=== PATIENT | male | born 1965 | race Caucasian/White ===

== ENCOUNTER 2017-02-26 15:51 | Emergency (ER) | payer BC ==
[~2017-02-26] VITALS: Ht 175.3 cm; Wt 75.2 kg
[~2017-02-26 15:51] MED LIST: NO REGULAR MEDS
[2017-02-26 15:53] VITALS: TEMP 98.5; Ht 175.3 cm; Wt 75.2 kg
--- NOTE | 2017-02-26 16:00 | ERPDOC ---
Departure Disposition Decision Date: February 26, 2017 Disposition Decision Time: 16:35 Disposition: 01 DISCHARGED HOME, SELF-CARE Impression Impression Impression: Primary Impression: Left radial fracture Encounter type: initial encounter Radius location: distal Fracture type: closed Fracture morphology: other intra-articular Qualified Codes: S52.572A - Other intraarticular fracture of lower end of left radius, initial encounter for closed fracture Additional Impression: Fall Encounter type: initial encounter Qualified Codes: W19.XXXA - Unspecified fall, initial encounter Severity: Moderate Condition: Improved Seen By: Mid-level only Referrals: MEAGHAN COLUNGA MD (Family) ERIC CALVERT MD Patient Instructions: Wrist Fracture in Adults (ED) Problems/Meds/Labs Reviewed?: Yes Medications reviewed and manag: Yes Additional Instructions: Your have fracture of your left radius. Wear splint as directed. Elevated arm and ice to reduce swelling. Follow in office tomorrow with Dr. Calvert orthopedic physician at 1:30. You may take narco 5/325mg, 1-2 tabs every 4-6 hours for pain. This medication may cause drowsiness so avoid operating heavy, machinery driving or drinking alcohol while taking. You may take OTC aleve or ibuprofen for pain. Ask Dr. Calvert tomorrow to see if he wants you to continue this. Follow treatment plan. Follow up care ordered?: Yes Mental Status: Alert, Oriented Scripts Hydrocodone/Acetaminophen ([place] 5-325 Tablet) 5-325 Tablet 1-2 TAB PO Q4-6HPRN Y for PAIN, #20 TAB Prov: SAL WRIGHT Geraldo ANTOINE 02/26/17 HPI - Fall/Injury General Chief Complaint: Fall Stated Complaint: FELL,POSS BROKEN ARM Time Seen by Provider: 15:58 Source: patient HPI - Fall/Injury Initial Comments 51 YO M presents to ED with report of left wrist and left shoulder pain. Patient was on a ladder cleaning out gutters when he slipped and fell approx. 4 ft. on out stretched left hand onto concrete at 1500 today. Having pain over radius on wrist and pain with movement. Also report pain in left shoulder joint. Denies striking head, LOC, neck/back pain or other injuries. Patient has not taken anything for pain. Occurred At: home Pain Scale: Now: 6/10 Injuries/Pain Location: upper extremity Loss of Consciousness: no loss of consciousness Associated Symptoms: DENIES: abdominal pain, chest pain, confusion, dizziness, headache, lightheadedness, muscle spasms, nausea/vomiting, neck pain, ringing in ears, seizures, shortness of breath, slurred speech, trouble walking, vision changes Allergies: Coded Allergies: No Known Drug Allergies (Unverified Allergy, Unknown, 11/13/08) Past History Past Medical History Metabolic: DENIES: diabetes Cardiac: angina Respiratory: DENIES: asthma GI: DENIES: ulcers Male: DENIES: renal insufficiency Neurological: DENIES: seizures Musculoskeletal: DENIES: rheumatoid arthritis Hematologic: DENIES: anemia Psychological: DENIES: depression Surgical History General: appendix Joint: shoulder Family History Family PMH: FOUND: other (noncontributory) Social History Current Occupational Status: employed Review of Systems Constitutional Constitutional: DENIES: chills, dizziness, fever, weakness Eyes General: DENIES: erythema, exudate Lids/Accessories: DENIES: erythema, swelling ENMT Ears: DENIES: pain Sinuses: DENIES: congestion, rhinorrhea Mouth/Throat: DENIES: sore throat Cardiovascular Cardiac: DENIES: chest pain, murmur Rhythm/Rate: DENIES: palpitations Pulmonary Respiratory: DENIES: cough, dyspnea GI Upper Abdomen: DENIES: nausea, pain, vomiting Lower Abdomen: DENIES: diarrhea, pain General: DENIES: dysuria, pain Musculoskeletal General: joint pain, see HPI, tenderness Integumentary Skin: DENIES: color change, itching, rash Neurological General: DENIES: ataxia, change in strength, numbness, paralysis/paresis, weakness Psychiatric Psychiatric: DENIES: anxiety, depression, nervousness Physical Exam General General Nourishment: well nourished, well developed, no acute distress, adult General Body Habitus: well groomed Vitals and Pain First Documented Vital Signs Date Time Temp Pulse Resp B/P Pulse Ox O2 Delivery O2 Flow Rate FiO2 02/26/17 15:53 98.5 82 16 144/73 95 Room Air Weight: Kilograms: Height (feet): Height (inches): Triage Pain Scale: Eyes (brief) Eyes Brief: found: EOMI ENMT (brief) ENMT Brief: NOT FOUND: nasal exudate, nasal swelling Neck (brief) Neck: FOUND: trachea midline Respiratory (brief) Respiratory: FOUND: clear all otero, equal bilaterally, symmetrical Cardiovascular (brief) Cardiac: FOUND: regular rate, regular rhythm Fastrak Hand/Forearm Hand/Forearm : Upper Extremity: Left Elbow: extension intact, flexion intact, NOT FOUND: deformity, ecchymosis, erythema, laceration, swelling, tender Forearm: pronation intact, supination intact, NOT FOUND: deformity, ecchymosis, erythema, swelling, tender Wrist: ROM intact, swelling (mild), tender (TTP over radius), NOT FOUND: deformity, erythema, snuff box tenderness, thenar eminence tender Hand: NOT FOUND: deformity, ecchymosis, erythema, laceration, swelling, tender Fingers: cap refill <2sec ea digit, soft touch intact, NOT FOUND: deformity , ecchymosis, erythema, impaired abduction, impaired adduction, impaired extension, impaired flexion, impaired grasp, laceration, rotational deformity, swelling, tender Radial Pulse: 2+ Integumentary (brief) Integumentary Brief: FOUND: dry, pink, warm Neurologic (brief) Neurological Brief: FOUND: gait w/o gross def to obs, motor-no gross deficits, sensory-no gross deficits, NOT FOUND: ataxia Psychiatric (brief) Psychiatric Brief: FOUND: alert, normal affect, oriented Differential Diagnoses Considering: Contusion, Fracture, Sprain, Strain Procedures Procedures Performed Procedures Performed: Splinting Splinting Procedure Splint : Pre-placement NV: FOUND: cap refill < 3 sec, good sensation Hand-Made Type: orthoglass Splint: sugar-tong Post-placement NV: FOUND: cap refill < 3 sec, good sensation Applied by: RN Progress Results/Orders Orders Procedure Category Date Status Time Wrist Left 3-4 Views RAD 02/26/17 Resulted Shoulder Left 2-3 RAD 02/26/17 Resulted Views Sling EDM 02/26/17 Transmitted 17:04 Hand-Made Splint EDM 02/26/17 Transmitted 17:04 Ice Pack ACROLE 02/26/17 Complete 17:04 Progress Progress Patient is vascularly intact. Patient declined pain medication. I discussed x-ray findings with patient and answered question. I discussed follow up with Dr. Calvert tomorrow, treatment plan and return precautions which patient verbalized understanding. I Consult/PCP Consult/PCP : Physician Contacted: Dr. Calvert Type of discussion: Phone Consult/PCP Discussion Details I discussed patient's HPI, PMH, x-rays and exam findings with Dr. Calvert. Dr. Calvert would like to see patient at 1330 tomorrow in his office. Would like patient placed in sugar tong splint. Xray Xray #1: Xray: Wrist L Interpretation: Abnormal (intra-articular radius fracture (Dr. Brown)) Xray #2: Xray: Shoulder L (No acute findings (Dr. Brown)) SAL WRIGHT APRN February 26, 2017 16:00
[2017-02-26] MEDS ORDERED: HYDR-4246 PO (16:57)
--- NOTE | 2017-02-26 17:05 | NUR ---
SPLINT OCL SUGARTONG SPLINT APPLIED. NEUROS INTACT POST SPLINT
--- NOTE | 2017-02-26 17:15 | NUR ---
SLING ICE PACK X2 AND SLING PLACED
[2017-02-26 17:22] VITALS: BP 123/60; PULSE 74; RESP 16; O2SAT 97
--- NOTE | 2017-02-26 17:22 | NUR ---
DISMISSAL DISMISSAL INSTRUCTIONS WITH RX FOR NORCO. NO FURTHER QUESTIONS AT THIS TIME. PT LEFT DEPARTMENT [facility] IN NO DISTRESS
--- NOTE | 2017-02-26 17:30 | DI ---
Indication: ITS.REASON: Pain over AC joint after FOOSH PROCEDURE: SHOULDER LEFT 2-3 VIEWS: Encounter: Initial Comparison: None Findings: There is no acute fracture, dislocation or malalignment identified. Mild acromioclavicular and glenohumeral degenerative change. Impression: No acute osseous abnormality. .
--- NOTE | 2017-02-26 17:32 | DI ---
Indication: ITS.REASON: pain over radial side after FOOSH PROCEDURE: WRIST LEFT 3-4 VIEWS: Encounter: Initial Comparison: None Findings: Mildly comminuted intra-articular minimally displaced fracture of the distal radius extending into the radiocarpal joint. No additional acute fracture or dislocation is seen. 15 degrees dorsal angulation of the distal radial articular surface. There is evidence of a 3 mm articular surface gap seen on the scaphoid view. Impression: Closed posttraumatic intra-articular distal radial fracture. .
== END 2017-02-26 17:22 | disposition home or self-care (01) ==
LOC: ED 15:51
DX: S52.572A Other intraarticular fracture of lower end of left radius, initial encounter for closed fracture (principal); M25.512 Pain in left shoulder; W11.XXXA Fall on and from ladder, initial encounter; Y93.H9 Activity, other involving exterior property and land maintenance, building and construction; Y92.018 Other place in single-family (private) house as the place of occurrence of the external cause; Y99.8 Other external cause status

== ENCOUNTER → 2017-02-27 | Outpatient (CLI) | payer BC ==
[~2017-02-27] MED LIST changes: +HYDR-4246 PO
--- NOTE | 2017-02-27 16:35 | DI ---
Indication: ITS.REASON: S72.572A Other intraarticular fracture of lower end of left radius PROCEDURE: CT UPPER EXTREMITY LT W/O CONT: Encounter: Initial Comparison: None Three-dimensional volumetric MIP reconstructions were performed. Additional surface rendered 3-D images were also performed. Automated Exposure Control and Iterative Reconstruction dose reducing techniques were utilized. FINDINGS: There is a comminuted fracture extending across the distal radius with mild impaction and intra-articular extension. There is also lucency across the dorsum of the distal scaphoid which does not definitely reach the volar surface. No definite fracture of the distal ulna. The Mineralization appears preserved. No definite bony erosion or bony lesion. No definite widening of the scapholunate distance. IMPRESSION: Comminuted and impacted distal radius fracture with possible nondisplaced fracture of the dorsum of the scaphoid distally. .
== END ==
LOC: IMA 14:15
PROVIDERS: ATTEND Orthopaedic Surgery
DX: S52.572A Other intraarticular fracture of lower end of left radius, initial encounter for closed fracture (principal); W11.XXXA Fall on and from ladder, initial encounter; Y93.9 Activity, unspecified; Y92.009 Unspecified place in unspecified non-institutional (private) residence as the place of occurrence of the external cause; Y99.9 Unspecified external cause status